=== PATIENT | female | born 1970 | race Hispanic/Latino ===

== ENCOUNTER 2019-08-15 16:09 | Emergency (ER) | payer OTHER ==
[2019-08-15 17:52] LABS: RAPID GROUP A STREP POSITIVE (NEGATIVE)
== END 2019-08-15 18:07 | disposition home or self-care (01) ==
LOC: EDH 16:09
DX: J02.0 Streptococcal pharyngitis (principal); R50.9 Fever, unspecified; Z90.49 Acquired absence of other specified parts of digestive tract; Z72.0 Tobacco use
CPT/HCPCS: 87804; 87880